=== PATIENT | male | born 1975 | race Caucasian/White ===

== ENCOUNTER 2020-08-18 17:05 | Emergency (ER) | payer BC | END 2020-08-18 17:46 | disposition home or self-care (01) | LOC: JVIRT 17:05 | DX: Z11.59 Encounter for screening for other viral diseases (principal) | CPT/HCPCS: C9803; Q3014-GT; U0003 ==

== ENCOUNTER 2024-07-10 04:45 | Day surgery (SDC) | payer OTHER ==
[2024-07-05 13:47] VITALS: BMI 33.7
[2024-07-10] MEDS ORDERED: MIDAZOLAM HCL 2 MG/2 ML SINGLE DOSE VIAL ONE (10:14)
[2024-07-10 11:10] VITALS: RESP 18; TEMP 98.8
[2024-07-10 11:54] VITALS: BP 116/77; PULSE 63
== END 2024-07-10 11:54 | disposition home or self-care (01) ==
LOC: JASU-ENDO 04:45
PROVIDERS: ATTEND Internal Medicine Gastroenterology
PROC: 0DJD8ZZ Inspection of Lower Intestinal Tract, Via Natural or Artificial Opening Endoscopic (ICD-10-PCS; principal; 2024-07-10 11:00)
DX: Z12.11 Encounter for screening for malignant neoplasm of colon (principal); K57.30 Diverticulosis of large intestine without perforation or abscess without bleeding